=== PATIENT | male | born 1960 | race Caucasian/White ===

== ENCOUNTER 2018-03-22 08:51 | Day surgery (SDC) | payer BC ==
[2018-03-22] MEDS ORDERED: LIDOCAINE 2% (SDV) 5 ML INJ (09:41)
[2018-03-22] MEDS ORDERED: PROPOFOL 40 ML (09:41)
== END 2018-03-22 12:40 | disposition home or self-care (01) ==
LOC: GIL 08:51
DX: K56.699 Other intestinal obstruction unspecified as to partial versus complete obstruction (principal); K64.8 Other hemorrhoids
CPT/HCPCS: 45386